=== PATIENT | female | born 1985 | race Caucasian/White ===

== ENCOUNTER 2017-05-04 19:13 | Inpatient (IN) | payer BC ==
[2017-05-04] MEDS ORDERED: Calcium Carbonate CHEW TAB* 500 MG (TUMS) PO PRN (22:18)
[2017-05-04 22:25] LABS: Hematocrit 33 % (35-47); Hemoglobin 10.4 g/dl (12.0-16.0); Mean Corpuscular HGB Conc 32 g/dl (31-36); Mean Corpuscular Hemoglobin 23 pg (27-31); Mean Corpuscular Volume 73 fL (80-97); Mean Platelet Volume 7 um3 (7.4-10.4); Red Blood Count 4.49 10^6/ul (4.0-5.4); Red Cell Distribution Width 16 % (10.5-15); White Blood Count 17.4 10^3/ul (3.5-10.8)
[2017-05-04 22:26] LABS: Add Diff/Slide Review? Slide Review Added; Comments Flag Yes
[2017-05-04] MEDS ORDERED: OBEPIDURAL* 250 ML ONE (22:41)
[2017-05-04] MEDS ORDERED: Phenylephrine IV* 40 MCG/ML 10 ML SYRINGE IV PUSH PRN (23:21)
[2017-05-04] MEDS ORDERED: Sodium Citrate/Citric Acid* 15 ML UDC PO PRN (23:21)
[2017-05-04] MEDS ORDERED: OBEPIDURAL* 250 ML EPIDURAL SCH (23:45)
[2017-05-04] MEDS: Phenylephrine IV* 40 MCG/ML 10 ML SYRINGE IV PUSH PRN ×2 (23:47→23:49)
[2017-05-05] MEDS ORDERED: Oxytocin in LR* 20 UNITS/1,000 ML BAG IVPB ONE (00:49)
[2017-05-05] MEDS ORDERED: Dibucaine 1% 28.35 GM TUBE PR PRN (01:00)
[2017-05-05] MEDS ORDERED: Witch Hazel PAD* JAR TOPICAL PRN (01:00)
[2017-05-05] MEDS ORDERED: Glycerin ADULT SUPP PR PRN (01:00)
[2017-05-05] MEDS ORDERED: Ibuprofen TAB* 600 MG ONE (01:25)
[2017-05-05] MEDS: Ibuprofen TAB* 600 MG PO PRN ×4 (01:27→19:42)
[2017-05-05] MEDS: Docusate CAP* 100 MG PO SCH ×3 (08:11→19:41)
[2017-05-05] MEDS ORDERED: Simethicone TAB* 80 MG TAB.CHEW PO SCH (08:30)
[2017-05-05] MEDS: Acetaminophen TAB* 325 MG PO PRN ×2 (10:12→16:24)
[2017-05-05] MEDS: Cyclobenzaprine TAB* 10 MG PO PRN ×2 (11:14→19:41)
[2017-05-05] MEDS ORDERED: Cyclobenzaprine TAB* 10 MG PO PRN (19:36)
[2017-05-06 06:33] LABS: Hematocrit 31 % (35-47); Hemoglobin 9.9 g/dl (12.0-16.0); Mean Corpuscular HGB Conc 32 g/dl (31-36); Mean Corpuscular Hemoglobin 24 pg (27-31); Mean Platelet Volume 7 um3 (7.4-10.4); Red Blood Count 4.21 10^6/ul (4.0-5.4); Red Cell Distribution Width 16 % (10.5-15); White Blood Count 16.7 10^3/ul (3.5-10.8)
[2017-05-06 06:37] LABS: Comments Flag Yes
[2017-05-06 06:38] LABS: Mean Corpuscular Volume 73 fL (80-97)
[2017-05-06] MEDS: Ibuprofen TAB* 600 MG PO PRN (06:42)
[2017-05-06] MEDS: Acetaminophen TAB* 325 MG PO PRN (06:42)
[2017-05-06] MEDS: Docusate CAP* 100 MG PO SCH (08:15)
[2017-05-06] MEDS ORDERED: Ferrous Gluconate TAB* 324 MG TAB PO SCH (09:00)
[2017-05-06 09:57] VITALS: BP 112/68
[2017-05-06] MEDS ORDERED: RHO D Immune Globulin (HUMAN)* 300 MCG = 1,500 I.U. INJ IM ONE (10:36)
== END 2017-05-06 12:19 | disposition home or self-care (01) | DRG 560 ==
LOC: MCHOBOUT 19:13 → MCHOB 19:59
PROVIDERS: ADMIT Midwife; ATTEND Midwife
PROC: 10E0XZZ Delivery of Products of Conception, External Approach (ICD-10-PCS; principal; 2017-05-05)
PROC: 10907ZC Drainage of Amniotic Fluid, Therapeutic from Products of Conception, Via Natural or Artificial Opening (ICD-10-PCS; 2017-05-05)
DX: O48.0 Post-term pregnancy (principal); Z37.0 Single live birth; Z3A.40 40 weeks gestation of pregnancy; Z88.0 Allergy status to penicillin; Z88.8 Allergy status to other drugs, medicaments and biological substances; Z91.048 Other nonmedicinal substance allergy status
CPT/HCPCS: 36415; 85025; 85461; 86850; 86870; 86880; 86900; 86901; A9270-GY; J2790

== ENCOUNTER 2018-07-31 17:58 | Emergency (ER) | payer SELFPAY ==
[2018-07-31 19:01] VITALS: BP 124/72
--- NOTE | 2018-07-31 20:04 | UC ---
Respiratory Complaint HPI - HPI Summary HPI Summary: mom sick x 5 days sore throat ear pain cough, congestion, runny nose cloudy fever today 99 Mucinex No influenza + productive cough + sinus pressure LMP: 07/02/19 No dysuria + multiple sick contact Healthy No medication No smoke Weekly self employed - History of Current Complaint Chief Complaint: UCGeneralIllness Stated Complaint: COUGH,CONGESTION,ST,SINUS Time Seen by Provider: 07/31/18 19:15 Hx Obtained From: Patient Hx Last Menstrual Period: 07/02/18 Pain Intensity: 5 - Allergies/Home Medications Allergies/Adverse Reactions: Allergies Allergy/AdvReac Type Severity Reaction Status Date / Time cefuroxime [From Ceftin] Allergy Intermediate Rash Verified 07/31/18 19:20 doxycycline Allergy Intermediate Rash Verified 07/31/18 19:20 Penicillins Allergy Intermediate Rash Verified 07/31/18 19:20 PMH/Surg Hx/FS Hx/Imm Hx Previously Healthy: Yes - Surgical History Surgical History: Yes Surgery Procedure, Year, and Place: t&a 1995 - Family History Known Family History: Positive: Non-Contributory - Social History Lives: With Family Alcohol Use: Occasionally Substance Use Type: None Smoking Status (MU): Never Smoked Tobacco Have You Smoked in the Last Year: No - Immunization History Most Recent Influenza Vaccination: 05/22/13 Most Recent Tetanus Shot: 10/20/15 Most Recent Pneumonia Vaccination: none Review of Systems All Other Systems Reviewed And Are Negative: Yes Constitutional: Positive: Fever, Fatigue ENT: Positive: Sore Throat, Nasal Discharge, Sinus Congestion, Sinus Pain/ Tenderness Physical Exam - Summary Physical Exam Summary: Vital Signs Reviewed: Yes A+Ox3, no distress Eyes: Conjunctiva Clear, JAYLON. EOM intact and full ENT: Hearing grossly normal fluid left TM, no erythema, right TM wnl, turbinates inflammed, + PND, mmoist, uvula midline, no exudate, no erythema Neck: Positive: Supple Respiratory: Positive: No respiratory distress, No accessory muscle use + CTA throughout no w/r. mild cough Cardiovascular: RRR nl s1, s2 no m/r CBT <2 sec abd soft + BS nt/nd no guarding, no distension Musculoskeletal Exam: PATTERSON x 4 without difficulty Strength Intact, ROM Intact Neurological: Positive: Alert, + sensation throughout Psychological: Positive: Normal Response To Family Skin: Positive: no rash, no ecchymosis Triage Information Reviewed: Yes Vital Signs: Initial Vital Signs Temp 98.9 F 07/31/18 18:58 Pulse 100 07/31/18 18:58 Resp 16 07/31/18 18:58 BP 124/72 07/31/18 18:58 Pulse Ox 100 07/31/18 18:58 Diagnostic Evaluation - Laboratory O2 Sat by Pulse Oximetry: 100 Respiratory Course/Dx - Course Course Of Treatment: Pt presents to with cough and congestion progressive sinus pressure, low grade temp. Several family members sick, on abx. vital signs reviewed. exam c/w rhionosinusitis. z pack. motrin/apap. flonase. secretion precaution. humified air. return precautions - Differential Dx/Diagnosis Provider Diagnosis: Rhinosinusitis Discharge - Sign-Out/Discharge Documenting (check all that apply): Patient Departure All imaging exams completed and their final reports reviewed: No Studies - Discharge Plan Condition: Stable Disposition: HOME Prescriptions: Azithromycin TAB* [Zithromax TAB (Z-HAY) 250 mg #6 tabs] 2 tab PO .TODAY, THEN 1 DAILY #1 hay Fluticasone NASAL SPRAY 50MCG* [Flonase NASAL SPRAY 50MCG*] 2 spray BOTH NARES DAILY #1 btl Patient Education Materials: Rhinosinusitis (ED) Referrals: Patsy Mott MD [Primary Care Provider] - Additional Instructions: - Stay well hydrated. Drink plenty of non-alcoholic, non-caffinated beverages. - Alternate ibuprofen (Advil, Motrin) 600mg and Tylenol every 3 hours for pain or fever. Take with food. Do NOT take for more than 4-5 days. - These infections are spread by secretions - do NOT share eating or drinking utensils - clean items you share with other people such as cell phones, computer mouse, TV remote, computer tablets,etc. Once you have been antibiotics for 2 days, change your toothbrush and your pillowcase. - get plenty of restful sleep - humidify the air in the room where you sleep - boil water, run a hot steam shower, vaporizer, cups of water by heat register - okay to take over the counter decongestant and cough medication - use nasal spray as prescribed - contact your doctor or return with questions or concerns - Billing Disposition and Condition Condition: STABLE Disposition: Home
== END 2018-07-31 20:20 | disposition home or self-care (01) ==
LOC: UCCORT 17:58
DX: J32.9 Chronic sinusitis, unspecified (principal); Z88.1 Allergy status to other antibiotic agents; Z88.0 Allergy status to penicillin
CPT/HCPCS: 99212; G0463

== ENCOUNTER 2018-08-18 21:18 | Emergency (ER) | payer OTHER ==
[2018-08-18 21:30] VITALS: BP 109/65
--- NOTE | 2018-08-18 21:48 | UC ---
General HPI - HPI Summary HPI Summary: pt has had sinus congestion, low grade fever and purulent drainage x 2 weeks. she was here on 07/31/18 and tx with zpak plus flonase. zpak gave no relief and the flonase caused severe burning in the nose so she had to stop it. she returns because the sinus pressure and pain has become severe. the pressure is causing a headache. she is tx with saline and decongestants with no relief. pt has pcn, cephalosporin and doxycycline allergies. they all cause rash thus tx options are limited. - History of Current Complaint Chief Complaint: UCGeneralIllness Stated Complaint: SINUS Time Seen by Provider: 08/18/18 21:36 Hx Obtained From: Patient Hx Last Menstrual Period: 07/02/18 Onset/Duration: Gradual Onset Timing: Constant Pain Intensity: 9 - Allergy/Home Medications Allergies/Adverse Reactions: Allergies Allergy/AdvReac Type Severity Reaction Status Date / Time cefuroxime [From Ceftin] Allergy Intermediate Rash Verified 07/31/18 19:20 doxycycline Allergy Intermediate Rash Verified 07/31/18 19:20 Penicillins Allergy Intermediate Rash Verified 07/31/18 19:20 Home Medications: Home Medications Ibuprofen 600 mg PO DAILY 08/18/18 [History Confirmed 08/18/18] PMH/Surg Hx/FS Hx/Imm Hx - Additional Past Medical History Additional PMH: sinusitis - Surgical History Surgical History: Yes Surgery Procedure, Year, and Place: t&a 1995 - Family History Known Family History: Positive: Non-Contributory - Social History Lives: With Family Alcohol Use: Occasionally Substance Use Type: None Smoking Status (MU): Never Smoked Tobacco Have You Smoked in the Last Year: No - Immunization History Most Recent Influenza Vaccination: 05/22/13 Most Recent Tetanus Shot: 10/20/15 Most Recent Pneumonia Vaccination: none Vaccination Up to Date: Yes Review of Systems All Other Systems Reviewed And Are Negative: Yes Constitutional: Positive: Negative Skin: Positive: Negative Eyes: Positive: Negative ENT: Positive: Nasal Discharge, Sinus Congestion, Sinus Pain/Tenderness Respiratory: Positive: Negative Cardiovascular: Positive: Negative Gastrointestinal: Positive: Negative Genitourinary: Positive: Negative Motor: Positive: Negative Neurovascular: Positive: Negative Musculoskeletal: Positive: Negative Neurological: Positive: Headache Psychological: Positive: Negative Is Patient Immunocompromised?: No Physical Exam Triage Information Reviewed: Yes Appearance: Well-Appearing Vital Signs: Initial Vital Signs Temp 98.6 F 08/18/18 21:27 Pulse 80 08/18/18 21:27 Resp 16 08/18/18 21:27 BP 109/65 08/18/18 21:27 Pulse Ox 100 08/18/18 21:27 Vital Signs Reviewed: Yes Eyes: Positive: Conjunctiva Clear, Other: - PERRL, EOMI. ENT: Positive: Pharynx normal, Nasal congestion, TMs normal, Sinus tenderness - R frontal and maxillary.. Negative: Nasal drainage Neck: Positive: Supple, Nontender, No Lymphadenopathy Respiratory: Positive: Lungs clear, Normal breath sounds Cardiovascular: Positive: RRR, No Murmur Abdomen Description: Positive: Nontender, No Organomegaly, Soft Bowel Sounds: Positive: Present Musculoskeletal: Positive: ROM Intact Neurological: Positive: Other: - A&O x3 . CN 2-12 grossly intact.Normal gait. Psychological: Positive: Normal Response To Family, Age Appropriate Behavior Skin Exam: Normal Course/Dx - Course Course Of Treatment: unable to tx with pcn, doxycycline and cephalosporin due to allergies. Failed zpak and unable to tolerate flonase. has already been using decongestants and nasal saline. This leaves us with Levaquin and po steroids due to failure of prior treatments. Pt advised of risk for complications from the quinalone class including tendinopathy. She is willing to take risk so I will tx with Levaquin. Pt notes prior tx with prednisone caused sleep disturbance thus will start at reduced dose of 20mg po daily and pt to use in am due to prior sleep disturbance. will also refer to ENT, they use Dr Watkins for her family so she would like to go to him. - Differential Dx - Multi-Symptom Differential Diagnoses: Other - No concern for cva or intracranial lesion. - Diagnoses Provider Diagnosis: Sinusitis Discharge - Sign-Out/Discharge Documenting (check all that apply): Patient Departure All imaging exams completed and their final reports reviewed: No Studies - Discharge Plan Condition: Stable Disposition: HOME Prescriptions: Levofloxacin TAB* [Levaquin TAB*] 500 mg PO DAILY 4 Days #4 tab predniSONE [Prednisone 20 MG TAB] 20 mg PO DAILY #5 tablet Patient Education Materials: Sinusitis (ED) Referrals: Brian Watkins MD [Medical Doctor] - 5 Days - Billing Disposition and Condition Condition: STABLE Disposition: Home
[2018-08-18] MEDS ORDERED: Levofloxacin TAB* 500 MG PO ONE (21:52)
== END 2018-08-18 21:59 | disposition home or self-care (01) ==
LOC: UCCORT 21:18
DX: J32.9 Chronic sinusitis, unspecified (principal); Z88.1 Allergy status to other antibiotic agents; Z88.0 Allergy status to penicillin
CPT/HCPCS: 99212; G0463

== ENCOUNTER 2018-12-07 09:39 | Emergency (ER) | payer OTHER ==
[2018-12-07 10:34] VITALS: BP 108/66
--- NOTE | 2018-12-07 10:51 | UC ---
Throat Pain/Nasal Adan HPI - HPI Summary HPI Summary: sinus pain and pressure x 2 weeks yellow / green nasal discharge, pnd, sore throat mild dry cough , no fever, no chills - History of Current Complaint Chief Complaint: UCRespiratory Stated Complaint: SINUS CONGESTION,COUGH Time Seen by Provider: 12/07/18 10:23 Hx Obtained From: Patient Hx Last Menstrual Period: 07/02/18 ?: No Onset/Duration: Gradual Onset, Lasting Weeks - 2, Still Present Severity: Moderate Pain Intensity: 4 Cough: Nonproductive Associated Signs & Symptoms: Positive: Sinus Discomfort, Nasal Discharge. Negative: Fever, Vomiting, Rash - Allergies/Home Medications Allergies/Adverse Reactions: Allergies Allergy/AdvReac Type Severity Reaction Status Date / Time cefuroxime [From Ceftin] Allergy Intermediate Rash Verified 12/07/18 10:34 doxycycline Allergy Intermediate Rash Verified 12/07/18 10:34 Penicillins Allergy Intermediate Rash Verified 12/07/18 10:34 Home Medications: Home Medications Acetaminophen [APAP] 650 mg PO 12/07/18 [History] diphenhydrAMINE HCl [Benadryl Allergy 25 MG CAP] 25 mg PO 12/07/18 [History] PMH/Surg Hx/FS Hx/Imm Hx Previously Healthy: Yes - Surgical History Surgical History: Yes Surgery Procedure, Year, and Place: t&a 1995 - Family History Known Family History: Positive: Non-Contributory Negative: Diabetes - Social History Alcohol Use: Occasionally Substance Use Type: None Smoking Status (MU): Never Smoked Tobacco Have You Smoked in the Last Year: No - Immunization History Most Recent Influenza Vaccination: 05/22/13 Most Recent Tetanus Shot: 10/20/15 Most Recent Pneumonia Vaccination: none Vaccination Up to Date: Yes Review of Systems All Other Systems Reviewed And Are Negative: Yes Constitutional: Positive: Negative Skin: Positive: Negative Eyes: Positive: Negative ENT: Positive: Sore Throat, Ear Ache, Nasal Discharge, Sinus Congestion, Sinus Pain/Tenderness Respiratory: Positive: Cough Cardiovascular: Positive: Negative Gastrointestinal: Positive: Negative Is Patient Immunocompromised?: No Physical Exam Triage Information Reviewed: Yes Appearance: Well-Appearing, No Pain Distress, Well-Nourished Vital Signs: Initial Vital Signs Temp 98.7 F 12/07/18 10:30 Pulse 79 12/07/18 10:30 Resp 18 12/07/18 10:30 BP 108/66 12/07/18 10:30 Pulse Ox 100 12/07/18 10:30 Vital Signs Reviewed: Yes Eye Exam: Normal Eyes: Positive: Conjunctiva Clear ENT: Positive: Normal ENT inspection, Hearing grossly normal, Pharyngeal erythema, Nasal congestion, Nasal drainage, TMs normal, Sinus tenderness. Negative: TM bulging, TM dull, TM red, Tonsillar swelling, Tonsillar exudate Neck: Positive: Supple, Nontender, No Lymphadenopathy Respiratory: Positive: Chest non-tender, Lungs clear, Normal breath sounds Cardiovascular: Positive: RRR, No Murmur, Pulses Normal Skin Exam: Normal Throat Pain/Nasal Course/Dx - Differential Dx/Diagnosis Provider Diagnosis: Sinusitis Discharge - Sign-Out/Discharge Documenting (check all that apply): Patient Departure All imaging exams completed and their final reports reviewed: No Studies - Discharge Plan Condition: Stable Disposition: HOME Prescriptions: Levofloxacin TAB* [Levaquin TAB*] 500 mg PO DAILY #10 tab Patient Education Materials: Sinusitis (ED) Referrals: Patsy Mott MD [Primary Care Provider] - 7 Days - Billing Disposition and Condition Condition: STABLE Disposition: Home
== END 2018-12-07 10:55 | disposition home or self-care (01) ==
LOC: UCCORT 09:39
DX: J32.9 Chronic sinusitis, unspecified (principal); Z88.0 Allergy status to penicillin; Z88.1 Allergy status to other antibiotic agents; Z88.8 Allergy status to other drugs, medicaments and biological substances
CPT/HCPCS: 99212; G0463

== ENCOUNTER 2019-05-29 17:37 | Emergency (ER) | payer OTHER ==
[2019-05-29] MEDS ORDERED: Metoclopramide IV* 5 MG/ML 2 ML VIAL IV ONE (18:44)
[2019-05-29] MEDS ORDERED: NS 0.9% 1000 ML** 1,000 ML IV ONE (18:44)
[2019-05-29] MEDS ORDERED: diPHENhydraMINE IV* 50 MG/ML 1 ml VIAL (BENADRYL) IV ONE (18:44)
--- NOTE | 2019-05-29 18:45 | UC ---
Nausea/Vomiting/Diarrhea HPI - HPI Summary HPI Summary: 33 yo female presents with vomiting. She tells me that she is 9 weeks with her 4th . She tells me that she has been seeing her OBGYN/[employer] for her persistent vomiting over the last 9 weeks. She is currently taking zofran, vitamin B6, and unisom with decent relief, but yesterday had vomiting all day and was not able to eat. Today she has been drinking sips of water and has not vomited, but still feels nauseous. She called her OBGYN and they recommended she come here for IVF. Last appt with OBGYN was 1 week ago and pt reports that heart tones and baby were WNL. Pt denies fever, chills, SOB, chest pain, abdominal/pelvic pain, flank pain, dysuria, vaginal discharge or bleeding. - History of Current Complaint Chief Complaint: UCGeneralIllness Stated Complaint: VOMITTING X3 WEEKS Time Seen by Provider: 05/29/19 18:34 Hx Obtained From: Patient Hx Last Menstrual Period: 07/02/18 Onset/Duration: Gradual Onset Severity Initially: Moderate Severity Currently: Moderate Pain Intensity: 5 - Allergies/Home Medications Allergies/Adverse Reactions: Allergies Allergy/AdvReac Type Severity Reaction Status Date / Time cefuroxime [From Ceftin] Allergy Intermediate Rash Verified 05/29/19 18:26 doxycycline Allergy Intermediate Rash Verified 05/29/19 18:26 Penicillins Allergy Intermediate Rash Verified 05/29/19 18:26 Home Medications: Home Medications Doxylamine Succinate [Unisom] 25 mg PO DAILY 05/29/19 [History Confirmed ] Ondansetron HCl [Zofran 4 MG TAB] 4 mg PO DAILY PRN 05/29/19 [History Confirmed 05/29/19] Pyridoxine TAB* [Vitamin B6 TAB*] 50 mg PO BID 05/29/19 [History Confirmed 05/29] PMH/Surg Hx/FS Hx/Imm Hx - Additional Past Medical History Additional PMH: Anemia - Surgical History Surgical History: Yes Surgery Procedure, Year, and Place: t&a 1995 - Family History Known Family History: Positive: Non-Contributory Negative: Diabetes - Social History Lives: With Family Alcohol Use: None Substance Use Type: None Smoking Status (MU): Never Smoked Tobacco Have You Smoked in the Last Year: No - Immunization History Most Recent Influenza Vaccination: 05/22/13 Most Recent Tetanus Shot: 10/20/15 Most Recent Pneumonia Vaccination: none Vaccination Up to Date: Yes Review of Systems All Other Systems Reviewed And Are Negative: No Constitutional: Positive: Negative Skin: Positive: Negative Eyes: Positive: Negative ENT: Positive: Negative Respiratory: Positive: Negative Cardiovascular: Positive: Negative Gastrointestinal: Positive: Vomiting, Nausea Genitourinary: Positive: Negative Neurovascular: Positive: Negative Musculoskeletal: Positive: Negative Neurological: Positive: Negative Psychological: Positive: Negative Physical Exam - Summary Physical Exam Summary: GENERAL: NAD. WDWN. No pain distress. SKIN: No rashes, sores, lesions, or open wounds. NECK: Supple. Nontender. No lymphadenopathy. CHEST: CTAB. No r/r/w. No accessory muscle use. Breathing comfortably and in no distress. CV: RRR. Pulses intact. Cap refill <2seconds ABDOMEN: Soft. NTTP. No distention or guarding. No CVA tenderness. Bowel sounds present NEURO: Alert. PSYCH: Age appropriate behavior. Triage Information Reviewed: Yes Vital Signs: Initial Vital Signs Temp 99.3 F 05/29/19 18:20 Pulse 91 05/29/19 18:20 Resp 16 05/29/19 18:20 BP 104/65 05/29/19 18:20 Pulse Ox 100 05/29/19 18:20 Laboratory Tests 05/29/19 05/29/19 18:39 18:48 POC Glucose (mg/dL) 92 POC Urine Color Yellow POC Urine Clarity Clear POC Urine pH 5.5 POC Ur Specif [place] 1.025 POC Urine Protein Trace A POC Ur Glucose (UA) Negative POC Urine Ketones 4+ A POC Urine Blood Negative POC Urine Nitrite Negative POC Urine Bilirubin Negative POC Urine Urobilinogen 0.2 POC U Leukocyte Esteras Negative Vital Signs Reviewed: Yes Re-Evaluation - Re-Evaluation First Eval Re-Evaluation Time: 20:00 Change: Improved Comment: No vomiting. Nausea resolved. Pt eating preztels and feels much better overall Naus/Vom/Diarrhea Course/Dx - Course Course Of Treatment: In the clinic pt was given 1L NS, reglan, and benadryl for her nausea and vomiting. She felt much improved s/p these. She was drinking water and eating pretzels without difficulty or nausea. Will dc and have her continue to f/u with her OBGYN for care. - Differential Dx/Diagnosis Provider Diagnosis: , excessive vomiting Condition At Discharge: Stable Discharge ED - Sign-Out/Discharge Documenting (check all that apply): Patient Departure All imaging exams completed and their final reports reviewed: No Studies - Discharge Plan Condition: Stable Disposition: HOME Patient Education Materials: Nausea and Vomiting in (ED), Hyperemesis Gravidarum (ED) Referrals: Bull Felder MD [Primary Care Provider] - Additional Instructions: If you develop a fever, shortness of breath, chest pain, new or worsening symptoms - please call your PCP or go to the ED immediately. Continue to follow up with your OBGYN/[employer] for care - Billing Disposition and Condition Condition: STABLE Disposition: Home
[2019-05-29 20:13] VITALS: BP 101/52
== END 2019-05-29 20:13 | disposition home or self-care (01) ==
LOC: UCCORT 17:37
DX: O21.9 Vomiting of pregnancy, unspecified (principal); Z3A.09 9 weeks gestation of pregnancy; Z88.1 Allergy status to other antibiotic agents; Z88.0 Allergy status to penicillin
CPT/HCPCS: 81003; 96361; 96365; 96374; 99212; G0463; J1200; J2765